=== PATIENT | female | born 1955 ===

== ENCOUNTER 2024-06-15 17:54 | Outpatient (REF) | payer MEDICARE, SELFPAY ==
[2024-06-15 15:37] LABS: HCT 44.2 % (36.0-46.0); HGB 14.5 g/dL (11.2-15.7); MCH 30.2 pg (27.0-33.0); MCHC 32.8 % (32.0-36.0); MCV 92 fL (80-95); MPV 10.5 fL (8.0-11.0); Platelet Count 199 10^3/uL (130-400); RDW 12.4 % (11.7-14.6); RDW-SD 41.9 fL; WBC 6.23 10^3/uL (4.4-10.8)
[2024-06-15 16:02] LABS: ALT 33 U/L (14-59); AST 15 U/L (15-37); Albumin 4.2 g/dL (3.4-5.0); Alkaline Phosphatase 72 U/L (46-116); Anion Gap 6.3 mmol/L (3-11); BUN 17 mg/dL (7-18); Bilirubin, Total 0.51 mg/dL (0.2-1.0); CO2 31.7 mmol/L (21.0-32.0); CREATININE 0.8 mg/dL (0.55-1.02); Calcium 9.5 mg/dL (8.5-10.1); Calculated LDL 116 mg/dL (<100); Chloride 105 mmol/L (98-107); Cholesterol 212 mg/dL (<200); Estimated GFR 79.22 (mL/min/1.73m2); Glucose 104 mg/dL (74-106); HDL Cholesterol 83 mg/dL (40-60); Potassium 3.9 mmol/L (3.5-5.1); Sodium 143 mmol/L (136-145); TSH (W/Ref FT4) 2.72 uIU/mL (0.36-3.74); Total Protein 7.7 g/dL (6.4-8.2); Triglyceride 68 mg/dL (<150)
== END 2024-06-15 17:55 | disposition home or self-care (01) ==
LOC: NCHCN 17:54
PROVIDERS: Visit Provider Family Medicine
DX: Z13.0 Encounter for screening for diseases of the blood and blood-forming organs and certain disorders involving the immune mechanism (principal); Z13.220 Encounter for screening for lipoid disorders
CPT/HCPCS: 80053; 80061; 85027; 84443